=== PATIENT | female | born 1990 | race African-American/Black ===

== ENCOUNTER 2021-03-21 16:34 | Inpatient (IN) | payer MEDICAID, OTHER ==
[~2021-03-21] VITALS: Ht 170.2 cm; Wt 99.8 kg
[2021-03-21 18:29] LABS: BASOPHILS % 0.4 % (0.0-2.0); EOSINOPHILS % 0.4 % (0.0-5.0); HEMATOCRIT. 37.4 % (36.0-48.0); HEMOGLOBIN. 12.4 g/dL (12.0-16.0); LYMPHOCYTES % 19.3 % (20.0-50.0); MEAN CORPUSCULAR HEMOGLOBIN 31.2 pg (28.0-32.0); MEAN CORPUSCULAR VOLUME 94.4 fL (81.0-99.0); MEAN PLATELET VOLUME 8.5 fl (7.4-10.4); MONOCYTES % 9.4 % (2.0-8.0); NEUTROPHILS % 70.5 % (40.0-76.0); PLATELET 270 x1000/uL (130-400); RED BLOOD CELL COUNT 3.96 mill/uL (4.2-5.4); RED CELL DISTRIBUTION WIDTH 14.8 % (11.6-14.6)
[2021-03-21 18:30] LABS: CLARITY URINE CLOUDY (CLEAR); COLOR URINE YELLOW (YELLOW); KETONES URINE TRACE (NEGATIVE); LEUKOCYTE ESTERASE URINE TRACE (NEGATIVE); NITRITE URINE NEGATIVE (NEGATIVE); OCCULT BLOOD URINE 2+ (NEGATIVE); PROTEIN URINE 1+ (NEGATIVE); SPECIFIC GRAVITY URINE 1.026 (1.005-1.030); UROBILINOGEN URINE 0.2 E.U./dL (0.2-1.0)
[2021-03-21] MEDS ORDERED: DEXT 5%/LACTATED RINGERS 1,000 ML IV SCH (20:00)
[2021-03-21] MEDS ORDERED: BUTORPHANOL TARTRATE 2 MG/ML VIAL IV PRN (20:45)
[2021-03-21] MEDS ORDERED: MISOPROSTOL 100MCG TABLET VG PRN (20:45)
[2021-03-21] MEDS ORDERED: CARBOPROST TROMETHAMINE 250 MCG/ML AMPUL IM PRN (20:45)
[2021-03-21] MEDS ORDERED: DEXT 5%/LR + PITOCIN 20UNITS/L 1,000 ML IV SCH (20:45)
[2021-03-21] MEDS ORDERED: LIDOCAINE HCL 1% 20ML VIAL (Pyxis) INJ INFIL SCH (20:45)
[2021-03-21] MEDS ORDERED: NALOXONE HCL 0.4 MG/ML 1ML VIAL IM PRN (20:45)
[2021-03-21] MEDS: LACTATED RINGERS 1,000 ML IV SCH ×2 (20:45→21:58)
[2021-03-21] MEDS ORDERED: METHYLERGONOVINE MALEATE 0.2 MG/ML IM PRN (20:45)
[2021-03-21] MEDS ORDERED: MISOPROSTOL 200MCG TABLET VG SCH (20:45)
[2021-03-21] MEDS ORDERED: CITRIC ACID/SODIUM CITRATE SOLN 30ML UDC PO NR (21:54)
[2021-03-21 22:03] LABS: CLARITY URINE CLEAR (CLEAR); COLOR URINE YELLOW (YELLOW); KETONES URINE NEGATIVE (NEGATIVE); LEUKOCYTE ESTERASE URINE NEGATIVE (NEGATIVE); NITRITE URINE NEGATIVE (NEGATIVE); OCCULT BLOOD URINE 1+ (NEGATIVE); PROTEIN URINE NEGATIVE (NEGATIVE); SPECIFIC GRAVITY URINE 1.005 (1.005-1.030); UROBILINOGEN URINE 0.2 E.U./dL (0.2-1.0)
[2021-03-21] MEDS ORDERED: MORPHINE SULFATE/PF 1MG/ML 10ML AMP ONE (22:06)
[2021-03-21 22:09] LABS: PROTHROMBIN TIME 10.3 sec (9.6-11.0)
[2021-03-21 22:18] LABS: *AMPHETAMINES SCREEN URINE NEGATIVE (NEGATIVE); *BARBITURATES SCREEN URINE NEGATIVE (NEGATIVE); *BENZODIAZEPINES SCREEN URINE NEGATIVE (NEGATIVE); *COCAINE SCREEN URINE NEGATIVE (NEGATIVE); METHADONE URINE SCREEN NEGATIVE (NEGATIVE); OPIATES URINE SCREEN NEGATIVE (NEGATIVE)
[2021-03-21 22:19] LABS: CANNABINOID URINE SCREEN NEGATIVE (NEGATIVE); PHENCYCLIDINE URINE SCREEN NEGATIVE (NEGATIVE)
[2021-03-21 22:27] LABS: HEPATITIS B SURFACE ANTIGEN NEGATIVE
[2021-03-21] MEDS ORDERED: OXYTOCIN 10 UNITS/ML 1ML ONE (22:58)
[2021-03-21] MEDS ORDERED: ONDANSETRON HCL 4MG/2ML INJ ONE (22:58)
[2021-03-21] MEDS ORDERED: EPHEDRINE SULFATE 50MG/ML VIAL ONE (22:58)
[2021-03-21] MEDS ORDERED: CEFAZOLIN SODIUM 1000MG/VIAL ONE (22:58)
[2021-03-21] MEDS ORDERED: DEXAMETHASONE 4MG/ML 1ML VIAL ONE (22:58)
[2021-03-21] MEDS ORDERED: KETOROLAC 60MG/2ML VIAL IM ONE (23:15)
[2021-03-21] MEDS ORDERED: HYDROMORPHONE HCL/PF 2MG/ML CPJ IM PRN (23:45)
[2021-03-21] MEDS ORDERED: IBUPROFEN 400MG TABLET PO PRN (23:45)
[2021-03-21] MEDS ORDERED: BISACODYL 10MG SUPP PR PRN (23:45)
[2021-03-21] MEDS ORDERED: RHO(D) IMMUNE GLOBULIN 300 MCG/SYR IM PRN (23:45)
[2021-03-22] MEDS ORDERED: DIPHENHYDRAMINE 50MG/ML VIAL ONE (00:01)
[2021-03-22] MEDS ORDERED: NALOXONE HCL 0.4 MG/ML 1ML VIAL IV PRN ×2 (00:06→00:15)
[2021-03-22] MEDS ORDERED: DIPHENHYDRAMINE 50MG/ML VIAL IV PRN (00:15)
[2021-03-22] MEDS ORDERED: KETOROLAC 30MG/ML VIAL IV PRN (00:15)
[2021-03-22] MEDS: DEXT 5%/LR + PITOCIN 20UNITS/L 1,000 ML IV SCH ×2 (01:25→01:37)
[2021-03-22 02:30] VITALS: BP 116/62
[2021-03-22] MEDS ORDERED: PREN-182 PO (05:52)
[2021-03-22] MEDS ORDERED: FOLI20CA PO (05:52)
[2021-03-22 06:37] LABS: HEMATOCRIT. 37.1 % (36.0-48.0); HEMOGLOBIN. 12.3 g/dL (12.0-16.0); MEAN CORPUSCULAR HEMOGLOBIN 31.7 pg (28.0-32.0); MEAN CORPUSCULAR VOLUME 95.5 fL (81.0-99.0); MEAN PLATELET VOLUME 8.8 fl (7.4-10.4); PLATELET 252 x1000/uL (130-400); RED BLOOD CELL COUNT 3.88 mill/uL (4.2-5.4)
[2021-03-22 07:30] VITALS: BP 90/51
[2021-03-22 07:50] VITALS: BP 105/66
[2021-03-22] MEDS: FERROUS SULFATE 325MG TABLET PO SCH ×3 (09:07→17:46)
[2021-03-22] MEDS: PRENATAL VIT/FE FUMARATE/FA TABLET PO SCH (09:07)
[2021-03-22] MEDS: IBUPROFEN 800MG TABLET PO PRN ×2 (13:29→23:03)
[2021-03-22 14:44] LABS: PLATELET ESTIMATE NORMAL
[2021-03-22 19:30] VITALS: BP 117/62
[2021-03-23 04:00] VITALS: BP 119/67
[2021-03-23] MEDS: IBUPROFEN 800MG TABLET PO PRN ×2 (05:12→15:16)
[2021-03-23] MEDS: PRENATAL VIT/FE FUMARATE/FA TABLET PO SCH (08:22)
[2021-03-23] MEDS: FERROUS SULFATE 325MG TABLET PO SCH (08:22)
[2021-03-23 10:00] VITALS: BP 96/57
[2021-03-23 15:30] VITALS: BP 102/66
[2021-03-23 19:30] VITALS: BP 98/51
[2021-03-24] MEDS: IBUPROFEN 800MG TABLET PO PRN (02:55)
[2021-03-24 04:00] VITALS: BP 111/51
[2021-03-24 08:00] VITALS: BP 109/60
[2021-03-24] MEDS: PRENATAL VIT/FE FUMARATE/FA TABLET PO SCH (08:56)
[2021-03-24] MEDS: FERROUS SULFATE 325MG TABLET PO SCH (08:57)
[2021-03-24 10:07] LABS: BASOPHILS % 0.4 % (0.0-2.0); HEMOGLOBIN. 11.5 g/dL (12.0-16.0); MEAN CORPUSCULAR HEMOGLOBIN 30.6 pg (28.0-32.0); MEAN CORPUSCULAR VOLUME 95.6 fL (81.0-99.0); MEAN PLATELET VOLUME 8.3 fl (7.4-10.4); MONOCYTES % 6.2 % (2.0-8.0); NEUTROPHILS % 73.4 % (40.0-76.0); PLATELET 217 x1000/uL (130-400); RED BLOOD CELL COUNT 3.76 mill/uL (4.2-5.4); RED CELL DISTRIBUTION WIDTH 15.2 % (11.6-14.6)
== END 2021-03-24 12:15 | disposition home or self-care (01) | DRG 540 ==
LOC: 8 EST LDRP 16:34 → OBSVTOIN 20:36 → 8EST 03-22 02:45
PROVIDERS: ADMIT Obstetrics & Gynecology; ATTEND Obstetrics & Gynecology
PROC: 10D00Z1 Extraction of Products of Conception, Low, Open Approach (ICD-10-PCS; principal; 2021-03-21)
PROC: 3E0234Z Introduction of Serum, Toxoid and Vaccine into Muscle, Percutaneous Approach (ICD-10-PCS; 2021-03-23)
DX: O76 Abnormality in fetal heart rate and rhythm complicating labor and delivery (principal); O41.03X0 Oligohydramnios, third trimester, not applicable or unspecified; O77.0 Labor and delivery complicated by meconium in amniotic fluid; O69.1XX0 Labor and delivery complicated by cord around neck, with compression, not applicable or unspecified; O34.13 Maternal care for benign tumor of corpus uteri, third trimester; D25.9 Leiomyoma of uterus, unspecified; O99.13 Other diseases of the blood and blood-forming organs and certain disorders involving the immune mechanism complicating the puerperium; Z20.822 Contact with and (suspected) exposure to COVID-19; O34.43 Maternal care for other abnormalities of cervix, third trimester; D72.829 Elevated white blood cell count, unspecified; O26.893 Other specified pregnancy related conditions, third trimester; Z67.41 Type O blood, Rh negative; Z3A.38 38 weeks gestation of pregnancy; Z37.0 Single live birth; Z82.49 Family history of ischemic heart disease and other diseases of the circulatory system
CPT/HCPCS: 36415; 76805; 76818; 80305; 81003; 85025; 86592; 86703; 86762; 86850; 86886; 86900; 87340; 87426; 88307; 90384; 99281; G0378; J0690; J1100; J1200; J1885; J2274; J2405; J2590; J3490

== ENCOUNTER 2022-08-16 19:31 | Emergency (ER) | payer MEDICAID, OTHER ==
[~2022-08-16] VITALS: Ht 170.2 cm; Wt 92.0 kg
[2022-08-16 20:10] LABS: BASOPHILS % 0.4 % (0.0-2.0); EOSINOPHILS % 0.3 % (0.0-5.0); HEMATOCRIT. 33.6 % (36.0-48.0); HEMOGLOBIN. 11.7 g/dL (12.0-16.0); LYMPHOCYTES % 24.5 % (20.0-50.0); MEAN CORPUSCULAR HEMOGLOBIN 31.9 pg (28.0-32.0); MEAN CORPUSCULAR VOLUME 91.6 fL (81.0-99.0); NEUTROPHILS % 67.8 % (40.0-76.0); PLATELET 313 x1000/uL (130-400); RED BLOOD CELL COUNT 3.67 mill/uL (4.2-5.4); RED CELL DISTRIBUTION WIDTH 14.2 % (11.6-14.6)
[2022-08-16 20:13] LABS: CHLORIDE 107 mEq/L (98-107)
[2022-08-16 20:16] LABS: CLARITY URINE CLOUDY (CLEAR); COLOR URINE YELLOW (YELLOW); KETONES URINE NEGATIVE (NEGATIVE); LEUKOCYTE ESTERASE URINE 1+ (NEGATIVE); NITRITE URINE NEGATIVE (NEGATIVE); OCCULT BLOOD URINE NEGATIVE (NEGATIVE); PH URINE 6.5 (4.5-8.0); PROTEIN URINE NEGATIVE (NEGATIVE); SPECIFIC GRAVITY URINE 1.023 (1.005-1.030); UROBILINOGEN URINE 0.2 E.U./dL (0.2-1.0)
[2022-08-16 20:37] LABS: B-HCG QUANTITATIVE 14093 mIU/mL (<3)
[2022-08-16] MEDS ORDERED: CEPH500T MT (21:37)
[2022-08-16 22:36] VITALS: BP 116/71
== END 2022-08-16 22:35 | disposition home or self-care (01) ==
LOC: ER 19:31
DX: O23.12 Infections of bladder in pregnancy, second trimester (principal); O26.892 Other specified pregnancy related conditions, second trimester; N30.00 Acute cystitis without hematuria; R10.32 Left lower quadrant pain; Z3A.17 17 weeks gestation of pregnancy
CPT/HCPCS: 36415; 76805; 80053; 81003; 81025; 84702; 85025; 99284

== ENCOUNTER 2022-12-02 18:57 | Emergency (ER) | payer MEDICAID ==
[~2022-12-02] VITALS: Ht 170.2 cm; Wt 105.1 kg
[~2022-12-02 18:57] MED LIST: CEPH500T MT
[2022-12-02 19:28] VITALS: O2SAT 98
[2022-12-02] MEDS ORDERED: RHO(D) IMMUNE GLOBULIN 300 MCG/SYR IM ONE (21:30)
[2022-12-02 22:45] VITALS: BP 126/52; PULSE 80; RESP 17; TEMP 98.4
== END 2022-12-02 22:59 | disposition home or self-care (01) ==
LOC: ER 18:57
DX: O26.893 Other specified pregnancy related conditions, third trimester (principal); Z3A.32 32 weeks gestation of pregnancy
CPT/HCPCS: 36415; 36430; 86850; 86900; 90384; 96372; 99285; J2791